=== PATIENT | female | born 1980 | race Two or more races ===

== ENCOUNTER 2018-06-07 07:56 | Emergency (ER) | payer MEDICAID ==
[~2018-06-07] VITALS: Ht 152.4 cm; Wt 63.1 kg
--- NOTE | 2018-06-07 08:19 | NUR ---
PT PRESENTS TO ED WITH ABD PAIN, ON AND OFF FOR 1 YEAR OR MORE BUT SEVERE TODAY. PT TEARFUL. PT PLACED ON MONITOR, VSS, FAMILY AT BEDSIDE.
[2018-06-07] MEDS ORDERED: MORPHINE SULFATE 4 MG/ML, 1ML ONE ×2 (08:28→11:58)
[2018-06-07] MEDS ORDERED: ONDANSETRON 2MG/ML, 2ML ONE (08:28)
[2018-06-07] MEDS ORDERED: SODIUM CHLORIDE FLUSH 10ML SYR IVF ONE (08:30)
[2018-06-07] MEDS ORDERED: ONDANSETRON 2MG/ML, 2ML IVPush ONE (08:30)
[2018-06-07] MEDS: MORPHINE SULFATE 4 MG/ML, 1ML IVPush PRN ×2 (08:37→12:00)
[2018-06-07 08:47] LABS: BASOPHILS # (AUTO) 0.03 x10^3/uL (0-0.1); BASOPHILS % (AUTO) 0 % (0-1); EOSINOPHILS # (AUTO) 0.09 x10^3/uL (0-0.4); EOSINOPHILS % (AUTO) 1 % (1-7); LYMPHOCYTES # (AUTO) 2.39 x10^3/uL (1-3.4); LYMPHOCYTES % (AUTO) 27 % (22-44); MD NO; MEAN CORPUSCULAR HEMOGLOBIN 32.5 pg (27.0-34.8); MEAN CORPUSCULAR HGB CONC 34.1 g/dL (32.4-35.8); MEAN CORPUSCULAR VOLUME 95.3 fL (80-100); MEAN PLATELET VOLUME 6.9 fL (7.4-10.4); MONOCYTES # (AUTO) 0.39 x10^3/uL (0.2-0.8); MONOCYTES % (AUTO) 4 % (2-9); NEUTROPHILS # (AUTO) 5.95 x10^3/uL (1.8-6.8); NEUTROPHILS % (AUTO) 67 % (42-75); PLATELET COUNT 352 x10^3/uL (130-400); RED BLOOD COUNT 4.16 x10^6/uL (3.82-5.3); RED CELL DISTRIBUTION WIDTH 13.6 % (9.6-15.2)
[2018-06-07] MEDS ORDERED: MAALOX/HYOSCYAMINE/LIDOCAINE 45 ML BTL ONE (08:50)
[2018-06-07] MEDS ORDERED: FAMOTIDINE 20 MG/2 ML ONE (08:51)
[2018-06-07] MEDS ORDERED: FAMOTIDINE 20 MG/2 ML IVPush ONE (09:00)
[2018-06-07] MEDS ORDERED: MAALOX/HYOSCYAMINE/LIDOCAINE 45 ML BTL PO ONE (09:00)
[2018-06-07 09:04] LABS: ANION GAP 7 mmol/L (5-15); CALCIUM 8.7 mg/dL (8.5-10.1); CHLORIDE 109 mmol/L (98-107); CREATININE 0.78 mg/dL (0.55-1.02)
[2018-06-07 09:09] LABS: ALKALINE PHOSPHATASE 67 U/L (45-117); BILIRUBIN,TOTAL 0.3 mg/dL (0.2-1.0)
[2018-06-07 09:13] LABS: ALANINE AMINOTRANSFERASE 30 U/L (12-78); TOTAL PROTEIN 7.7 g/dL (6.4-8.2)
--- NOTE | 2018-06-07 09:30 | NUR ---
PT RESTING IN [place], IV ESTABLISHED AND PT MEDICATED. PT INSTRUCTED ON NEED FOR URINE SAMPLE, CANNOT GO AT THIS TIME
[2018-06-07] MEDS ORDERED: OMNIPAQUE 350 MG/ML, 100ML BOTTLE ONE (09:56)
--- NOTE | 2018-06-07 10:14 | NUR ---
PT BACK FROM CT, URINE SAMPLE SENT
[2018-06-07 10:32] LABS: MICROSCOPIC NOT IND
[2018-06-07 10:33] LABS: CULTURE INDICATED? NO
[2018-06-07 11:53] VITALS: BP 150/82
--- NOTE | 2018-06-07 11:54 | NUR ---
PT RESTING IN [place] DONE. VS UPDATED. MD AT BEDSIDE TO UPDATE FAM AND PT ON POC
== END 2018-06-07 12:19 | disposition home or self-care (01) ==
LOC: ED 08:59
DX: R10.84 Generalized abdominal pain (principal); G89.29 Other chronic pain
CPT/HCPCS: 36415; 74177; 76830; 80053; 81003; 83690; 84703; 85025; 96374; 96375; 96376; 99284; J2405; J3490; Q9967

== ENCOUNTER 2018-07-14 12:38 | Outpatient (CLI) | payer MEDICAID ==
[2018-07-14] MEDS ORDERED: No meds per pt. (13:07)
== END 2018-07-14 23:59 | disposition home or self-care (01) ==
LOC: STAR 12:38
PROVIDERS: ATTEND Obstetrics & Gynecology Female Pelvic Medicine and Reconstructive Surgery
DX: Z02.9 Encounter for administrative examinations, unspecified (principal)

== ENCOUNTER 2018-07-18 13:57 | Emergency (ER) | payer MEDICAID ==
[~2018-07-18] VITALS: Ht 162.6 cm; Wt 62.4 kg
[~2018-07-18 13:57] MED LIST: No meds per pt.
[2018-07-18] MEDS ORDERED: ACETAMINOPHEN 500 MG TABLET ONE (14:24)
[2018-07-18] MEDS ORDERED: ACETAMINOPHEN 500 MG TABLET PO ONE (14:30)
[2018-07-18] MEDS ORDERED: SODIUM CHLORIDE FLUSH 10ML SYR IVF ONE (14:30)
[2018-07-18 14:43] LABS: BASOPHILS # (AUTO) 0.02 x10^3/uL (0-0.1); BASOPHILS % (AUTO) 0 % (0-1); EOSINOPHILS # (AUTO) 0.11 x10^3/uL (0-0.4); EOSINOPHILS % (AUTO) 1 % (1-7); LYMPHOCYTES # (AUTO) 1.73 x10^3/uL (1-3.4); LYMPHOCYTES % (AUTO) 14 % (22-44); MD NO; MEAN CORPUSCULAR HEMOGLOBIN 32.9 pg (27.0-34.8); MEAN CORPUSCULAR HGB CONC 34.3 g/dL (32.4-35.8); MEAN CORPUSCULAR VOLUME 95.8 fL (80-100); MEAN PLATELET VOLUME 6.8 fL (7.4-10.4); MONOCYTES # (AUTO) 0.65 x10^3/uL (0.2-0.8); MONOCYTES % (AUTO) 5 % (2-9); NEUTROPHILS % (AUTO) 80 % (42-75); PLATELET COUNT 355 x10^3/uL (130-400); RED BLOOD COUNT 4.16 x10^6/uL (3.82-5.3); RED CELL DISTRIBUTION WIDTH 12.9 % (9.6-15.2)
[2018-07-18 14:46] LABS: RAPID INFLUENZA A Negative (Negative); RAPID INFLUENZA B Negative (Negative)
[2018-07-18 14:55] LABS: ALANINE AMINOTRANSFERASE 47 U/L (12-78); ALBUMIN 3.9 g/dL (3.4-5.0); ANION GAP 7 mmol/L (5-15); CALCIUM 8.9 mg/dL (8.5-10.1); CHLORIDE 108 mmol/L (98-107); CREATININE 0.64 mg/dL (0.55-1.02)
[2018-07-18 14:57] LABS: ALKALINE PHOSPHATASE 99 U/L (45-117); BILIRUBIN,TOTAL 0.2 mg/dL (0.2-1.0); TOTAL PROTEIN 7.8 g/dL (6.4-8.2)
[2018-07-18 15:08] LABS: MICROSCOPIC NOT IND
[2018-07-18 15:13] LABS: CULTURE INDICATED? NO
[2018-07-18 15:48] VITALS: BP 125/78
[2018-07-19] MEDS ORDERED: ACET-1600 PO (11:04)
== END 2018-07-18 16:40 | disposition home or self-care (01) ==
LOC: ED 14:20
DX: B34.9 Viral infection, unspecified (principal); R50.9 Fever, unspecified
CPT/HCPCS: 36415; 80053; 81003; 83605; 85025; 87040; 87400; 99283

== ENCOUNTER 2018-07-19 10:27 | Day surgery (SDC) | payer MEDICAID ==
[2018-07-14 13:07] VITALS: BP 136/94
[~2018-07-19] VITALS: Ht 149.9 cm; Wt 61.6 kg
[~2018-07-19 10:27] MED LIST changes: +BUPIVACAINE/PF 0.25% ONE; +EPINEPHRINE 1 MG/ML, 1ML ONE
[2018-07-19] MEDS ORDERED: LACTATED RINGERS 1,000 ML IV SCH (10:40)
[2018-07-19] MEDS ORDERED: GABAPENTIN 300 MG CAPSULE PO ONE (11:00)
[2018-07-19] MEDS ORDERED: SCOPOLAMINE PATCH, 1.5MG PATCH.TD72 TD ONE (11:00)
[2018-07-19 11:04] VITALS: BP 136/94
[2018-07-19] MEDS ORDERED: ACET-1600 PO (11:04)
[2018-07-19 11:41] LABS: HCG UR SG 1.024 (1.003-1.030)
[2018-07-19] MEDS ORDERED: MIDAZOLAM 1 MG/ML, 2ML ONE (11:54)
[2018-07-19] MEDS ORDERED: FENTANYL PF 250 MCG/5ML ONE (11:54)
[2018-07-19] MEDS ORDERED: ROCURONIUM 10MG/ML,5ML ONE (11:55)
[2018-07-19] MEDS ORDERED: PROPOFOL 10 MG/ML, 20ML ONE (11:56)
[2018-07-19] MEDS ORDERED: LIDOCAINE-MPF 2% ,5ML ONE (11:56)
[2018-07-19] MEDS ORDERED: DEXAMETHASONE 4 MG/ML, 1ML ONE ×2 (11:57)
[2018-07-19] MEDS ORDERED: ONDANSETRON 2MG/ML, 2ML ONE ×2 (11:57)
[2018-07-19] MEDS ORDERED: NEOMY/POLYMYXIN B GU IRR. 1 ML ONE (12:35)
[2018-07-19] MEDS ORDERED: CEFOTETAN 2 GM ONE (13:08)
[2018-07-19] MEDS ORDERED: MEPERIDINE/PF 50 MG/ML ONE (13:08)
[2018-07-19] MEDS ORDERED: ACETAMINOPHEN 325 MG TABLET PO PRN (13:30)
[2018-07-19] MEDS ORDERED: hydrALAzine 20 MG/ML, 1ML IV PRN (13:30)
[2018-07-19] MEDS ORDERED: PROMETHAZINE 25 MG/ML, 1ML IV PRN (13:30)
[2018-07-19] MEDS ORDERED: HYDROmorphone 2 MG/ML, 1ML IVPush PRN (13:30)
[2018-07-19] MEDS ORDERED: MEPERIDINE/PF 25MG/0.5ML IVPush PRN (13:30)
[2018-07-19] MEDS ORDERED: HALOPERIDOL 5 MG/ML IV PRN (13:30)
[2018-07-19] MEDS ORDERED: OXYcodone 5 MG/5 ML ORAL.SOL UDC PO PRN (13:30)
[2018-07-19] MEDS ORDERED: hydrALAzine 20 MG/ML, 1ML ONE (15:06)
[2018-07-19] MEDS ORDERED: FENTANYL PF 100 MCG/2ML ONE (15:06)
[2018-07-19] MEDS ORDERED: OXYcodone 5 MG/5 ML ORAL.SOL UDC ONE (15:07)
[2018-07-19] MEDS: FENTANYL PF 100 MCG/2ML IV PRN ×2 (15:11→15:20)
[2018-07-19] MEDS ORDERED: KETOROLAC 30 MG/1 ML IVPush ONE (15:30)
[2018-07-19] MEDS ORDERED: KETOROLAC 30 MG/1 ML ONE (15:31)
== END 2018-07-19 19:25 | disposition home or self-care (01) ==
LOC: OUT 10:27
PROVIDERS: ATTEND Obstetrics & Gynecology Female Pelvic Medicine and Reconstructive Surgery
DX: N92.1 Excessive and frequent menstruation with irregular cycle (principal); N94.6 Dysmenorrhea, unspecified; N39.46 Mixed incontinence; N94.10 Unspecified dyspareunia; N81.89 Other female genital prolapse; N80.3 Endometriosis of pelvic peritoneum; N32.81 Overactive bladder; Z98.890 Other specified postprocedural states
CPT/HCPCS: 57265; 57282; 57288; 58552; 81025; 88307; C1771; J0171; J1100; J1885; J2175; J2250; J2405; J2704; J3010; J3490; J7120